=== PATIENT | female | born 1960 | race Caucasian/White ===

== ENCOUNTER 2019-11-26 05:07 | Day surgery (SDC) ==
[2019-11-21 11:26] LABS: AGAP 12; BUN 7 mg/dL (8-22); CALCIUM 9.4 mg/dL (8.8-10.2); CHLORIDE 100 mmol/L (98-107); COSMO 284; CREATININE 0.7 mg/dL (0.5-0.9); ESTIMATED GFR > 60; GLUCOSE 123 mg/dL (70-104); HEMATOCRIT 42.9 % (37.0-47.0); MCH 28.8 PG (27-31); MCHC 32.6 g/dL (33-37); MCV 88.3 FL (81-99); MPV 10.4 FL (7.4-10.4); RBC 4.86 XMIL (4.2-5.4); RDW 13.4 % (11.5-14.5); SODIUM 143 mmol/L (136-145); TCO2 31 mmol/L (25-35); WBC 4.97 X1000 (4.8-10.8)
--- NOTE | 2019-11-21 11:53 | EKG Report ---
Test Performed on : 11/21/2019 10:53:02 AM Test Reason : pat Blood Pressure : / mmHG Vent. Rate : 093 BPM Atrial Rate : 093 BPM P-R Int : 170 ms QRS Dur : 096 ms QT Int : 362 ms P-R-T Axes : 065 -22 071 degrees QTc Int : 450 ms Normal sinus rhythm. Incomplete right bundle branch block Cannot rule out Inferior infarct , age undetermined Abnormal ECG No previous ECGs available Confirmed by Michelle HAWK, Jordon ([id number]) on 11/22/2019 11:21:09 AM
[2019-11-26] MEDS ORDERED: KEFZOL 1 GM/D5W 2 GM/100 ML IVPB ONE (06:42)
[2019-11-26] MEDS ORDERED: PEPCID ONE (06:42)
[2019-11-26] MEDS ORDERED: LR 1,000 ML ONE ×2 (06:42→11:10)
[2019-11-26] MEDS ORDERED: REGLAN ONE (06:42)
[2019-11-26] MEDS ORDERED: XYLOCAINE-MPF 2% ONE (07:16)
[2019-11-26] MEDS ORDERED: DIPRIVAN 1% ONE (07:16)
[2019-11-26] MEDS ORDERED: VERSED ONE (07:40)
[2019-11-26] MEDS ORDERED: DUONEB (A & A) INH ONE (08:03)
[2019-11-26] MEDS ORDERED: XYLOCAINE 1% ONE (08:05)
[2019-11-26] MEDS ORDERED: METHYLENE BLUE 0.5% ONE (08:05)
[2019-11-26] MEDS ORDERED: SENSORCAINE-MPF 0.5%/EPI 1:200,000 ONE (08:06)
--- NOTE | 2019-11-26 08:09 | Diag Imaging Result Doc PS360 ---
EXAM: LYMPHOSCINTIGRAPHY W/IMG INDICATION: Malignant neoplasm of unspecified site of right female breast TECHNIQUE: COMPARISON: None. FINDINGS: 521 uCi of technetium 99 Lymphoseek was injected subcutaneously in the region of the patient's known right breast mass by Dr. Dewey Mathis for purposes of sentinel node localization intraoperatively. Expected activity is seen at the injection site and in the right axilla. IMPRESSION: As above. Electronically signed by Perfecto Ferguson 11/26/2019 8:07 AM
[2019-11-26] MEDS ORDERED: ROBINUL ONE (08:15)
[2019-11-26] MEDS ORDERED: TORADOL ONE (08:41)
[2019-11-26] MEDS ORDERED: DECADRON ONE (08:41)
[2019-11-26] MEDS ORDERED: FENTANYL ONE (08:41)
[2019-11-26] MEDS ORDERED: ZOFRAN ONE (08:41)
[2019-11-26] MEDS: DILAUDID ONE ×2 (10:50→10:53)
[2019-11-26] MEDS ORDERED: MORPHINE IV PRN (11:47)
[2019-11-26] MEDS ORDERED: ZOFRAN IV PRN (11:47)
[2019-11-26] MEDS ORDERED: NORCO-10 PO PRN (11:47)
--- NOTE | 2019-11-26 19:00 | OPERATIVE NOTE ---
PROCEDURE DATE: 11/26/2019 PREOPERATIVE DIAGNOSIS: Right-sided breast cancer. POSTOPERATIVE DIAGNOSIS: Right-sided breast cancer. PROCEDURE PERFORMED: 1. Right mastectomy. 2. [place] lymph node biopsy with mapping. 3. Excision of right axillary skin lesion. ESTIMATED BLOOD LOSS: 100 mL. SPECIMENS: 1. Right breast, stitch tyson medial. 2. [place] lymph node #1. 3. Nonsentinel lymph node tissue. 4. Right axillary skin lesion. ANESTHESIA: General. INDICATIONS: A 59-year-old female who had a right-sided, slightly upper-outer breast carcinoma. She also on MRI had an indeterminate lesion on the left that biopsy showed was benign. OPERATIVE FINDINGS: There was a previously noted tumor in the outer quadrant of the right breast. There was a single sentinel axillary lymph node that dyed blue with methylene blue. The ex vivo count was 88,000 and bed count fell less than 10% of this. OPERATIVE NOTE: Risks, benefits, alternatives were discussed with the patient and she consented to the procedure. Seen preoperatively and surgical site was confirmed. She was taken to the operating room, placed in the supine position, general anesthesia induced. Please note that she had her technetium injected in the preoperative holding area and it localized the right axilla. After induction of anesthesia and administration of antibiotics, her right chest, axilla, and arm were prepped with Betadine circumferentially and her arm was draped in the field, excluding the hand. After a time-out, we planned an elliptical incision around the breast to include the mass and nipple areolar complex. We made our lateral incision 1st after injecting methylene blue and massaging it for several minutes, carried this down the into the axilla and identified a large sentinel node. It was soft but it was quite large. Ex vivo count was very high and bed count fell to less than 10%. There were no other pathologically enlarged lymph nodes in the axilla. There was some nonsentinel tissue that was sent, removed during the dissection of the sentinel node. Frozen section confirmed that there was no metastatic disease noted within this node. As such, we did not proceed with an axillary dissection and continued our mastectomy. We made our elliptical incision with a 10 blade scalpel and created our subcutaneous flaps. Carried our mastectomy flap up to the clavipectoral fascia cephalad, laterally to the latissimus, medially to the sternalis muscle, and inferiorly to the rectus. The breast was then removed including the fascia from the pectoralis muscle and protecting this. There were some medial feeding vessels that were ligated with Vicryl suture. Hemostasis was noted. We performed the Valsalva maneuver. We did place some Lindy powder given the oozing edge of the right axilla, but there was no significant bleeding noted with Valsalva. We placed a Rowdy drain, 1 in the mastectomy flap and 1 axilla and secured it with nylon suture. At this point 3.0 Vicryl was used to close the dermis. Skin was closed with 4-0 Monocryl in subcuticular fashion. Dermabond was applied. Counts were correct. She was awoken and transferred to recovery. Please also note, there was a pedunculated skin lesion in the right axilla adjacent to our mastectomy incision that we removed at its base, in its entirety with a scalpel. It was sent for pathology. It is consistent with a benign lesion. Bulbs were placed to suction. No complications. cc: Светлана Mathis MD
[2019-11-26] MEDS: PERIDEX MT SCH (20:19)
[2019-11-26] MEDS: LR 1,000 ML IV SCH (20:20)
[2019-11-27] MEDS: LR 1,000 ML IV SCH ×2 (03:04→06:45)
[2019-11-27] MEDS: TOPROL XL PO SCH ×2 (10:51→10:55)
[2019-11-27] MEDS: NORVASC PO SCH ×2 (10:51→10:54)
[2019-11-27] MEDS: PERIDEX MT SCH (10:52)
[2019-11-27 11:54] VITALS: BP 128/64
[2019-11-27] MEDS ORDERED: MORPHINE IV PRN (12:22)
--- NOTE | 2019-11-27 12:27 | DISCHARGE SUMMARY ---
ADMISSION DATE: 11/26/2019 DISCHARGE DATE: 11/27/2019 PREOPERATIVE DIAGNOSIS: Right-sided breast cancer. PROCEDURE PERFORMED: Right total mastectomy with sentinel lymph node biopsy. HISTORY OF PRESENT ILLNESS: This 59-year-old female with biopsy confirmed right breast cancer. HOSPITAL COURSE: The patient was seen on the day of her surgery, which was 11/26/2019, for above procedures and was cleared by anesthesia. For details, please see dictated operative note. Postoperatively, she is admitted for pain control. Drain output was appropriate. Incision remained flat and intact with well perfused flaps. She was afebrile. Pain was controlled without pain medication for the most part. She was felt safe for discharge after given her drain care instructions. Follow up with me in a week. Discharge instructions were given in written and verbal format. She will keep track of her drain output and will call when the output is less than 30 mL for 2 consecutive days. MEDICATIONS: [place] and Colace, as well as her home medications. DISPOSITION: Home to self-care and the care of her family. cc: Светлана Mathis MD
[2019-11-27] MEDS ORDERED: PHENERGAN IM PRN (12:28)
== END 2019-11-27 14:31 | disposition home or self-care (01) ==
LOC: OPS 05:07 → 4N 05:07 → OPS 11-27 14:31
PROVIDERS: ATTEND Surgery